=== PATIENT | female | born 1955 | race Caucasian/White ===

== ENCOUNTER 2018-10-02 15:32 | Outpatient (CLI) | payer BC ==
--- NOTE | 2018-10-02 16:28 | RAD ---
RIGHT HIP RADIOGRAPHS TWO VIEWS: Date: 10-02-18 Provided Clinical History: Right hip pain. FINDINGS: There is no evidence for fracture or other acute osseous abnormality. Right hip joint space appears p reserved. Alignment appears anatomic. IMPRESSION: No evidence for an acute osseous abnormality or significant arthropathy. POS: [facility]
== END 2018-10-02 15:33 | disposition home or self-care (01) ==
LOC: BICRAD 15:32
PROVIDERS: ATTEND Internal Medicine Rheumatology
DX: M25.551 Pain in right hip (principal)

== ENCOUNTER 2018-11-01 08:28 | Outpatient (CLI) | payer BC ==
--- NOTE | 2018-11-01 09:21 | BD ---
BONE DENSITOMETRY USING DEXA: HISTORY: Postmenopausal screening for osteoporosis. FINDINGS: Lumbar Spine: BMD (g/cm2) L2 0.979 T-Score: -0.4 Z-Score: 1.0 L3 1.063 T-Score: -0.2 Z-Score: 1.3 L4 1.019 T-Score: -0.4 Z-Score: 1.1 Femoral Neck: 0.659 T-Score: -1.7 Z-Score: -0.4 Total Femur: 0.856 T-Score: -0.7 Z-Score: 0.3 The 10-year fracture risk for a major osteoporotic fracture is 14% and for a hip fracture is 1.7%. Impression: Osteopenia. POS: [facility]
== END 2018-11-01 08:29 | disposition home or self-care (01) ==
LOC: BICMAMMO 08:28
PROVIDERS: ATTEND Internal Medicine Rheumatology
DX: M81.0 Age-related osteoporosis without current pathological fracture (principal); M85.859 Other specified disorders of bone density and structure, unspecified thigh
CPT/HCPCS: 77080

== ENCOUNTER 2020-12-31 15:19 | Outpatient (CLI) | payer OTHER | END 2020-12-31 15:20 | disposition home or self-care (01) | LOC: RAD 15:19 | PROVIDERS: ATTEND Psychiatry & Neurology Neurology | DX: G54.0 Brachial plexus disorders (principal); M43.12 Spondylolisthesis, cervical region; Z98.1 Arthrodesis status | CPT/HCPCS: 72040 ==

== ENCOUNTER 2023-05-02 14:05 | Outpatient (CLI) | payer OTHER | END 2023-05-02 14:06 | disposition home or self-care (01) | LOC: SCSMRI 14:05 | PROVIDERS: ATTEND Neurological Surgery | DX: M48.062 Spinal stenosis, lumbar region with neurogenic claudication (principal); M47.816 Spondylosis without myelopathy or radiculopathy, lumbar region; M51.27 Other intervertebral disc displacement, lumbosacral region; M48.07 Spinal stenosis, lumbosacral region; Z98.890 Other specified postprocedural states; Z98.1 Arthrodesis status | CPT/HCPCS: 72100; 72148 ==